=== PATIENT | male | born 1935 | race African-American/Black ===

== ENCOUNTER 2016-09-05 14:31 | Outpatient (CLI) | payer MEDICARE ==
--- NOTE | 2016-09-05 14:58 | XRay Report ---
ROUTINE CHEST, TWO VIEWS: HISTORY: Preoperative evaluation. 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 The trachea, heart, mediastinal contour, lung lazcano and bony thorax are unremarkable. IMPRESSION: No acute cardiopulmonary process.
== END 2016-09-05 14:32 | disposition home or self-care (01) ==
LOC: SPVIMAG 14:31
PROVIDERS: ATTEND Nurse Practitioner
DX: Z01.818 Encounter for other preprocedural examination (principal)
CPT/HCPCS: 71020